=== PATIENT | male | born 1995 | race Caucasian/White ===

== ENCOUNTER 2018-10-28 11:37 | Emergency (ER) | payer BC ==
[~2018-10-28] VITALS: Ht 177.8 cm; Wt 83.9 kg
[2018-10-28 11:50] LABS: URINE BILIRUBIN NEGATIVE (Negative); URINE BLOOD NEGATIVE (Negative); URINE CLARITY CLEAR; URINE COLOR YELLOW; URINE GLUCOSE-RANDOM NEGATIVE (Negative); URINE KETONES NEGATIVE (Negative); URINE LEUKOCYTES-REFLEX NEGATIVE (Negative); URINE NITRITE-REFLEX NEGATIVE (Negative); URINE PROTEIN NEGATIVE (Negative); URINE UROBILINOGEN 0.2 E.U./dl (0.2-1.0)
[2018-10-28 12:16] LABS: ABSOLUTE BASOPHILS 0.1 thou/uL (0.0-0.2); ABSOLUTE EOSINOPHILS 0.1 thou/uL (0.0-0.7); ABSOLUTE LYMPHOCYTES 2.1 thou/uL (0.8-5.3); ABSOLUTE MONOCYTES 0.4 thou/uL (0.0-1.2); ABSOLUTE NEUTROPHILS 3.8 thou/uL (1.6-8.1); HEMATOCRIT 45.5 % (42.0-52.0); LYMPHOCYTES 32.4 %; MCHC 35.2 g/dL (28.0-37.0); MCV 90.9 fL (80.0-100.0); MONOCYTES 5.9 %; MPV 8.1 fl. (7.2-11.1); NUCLEATED RBCS 0 /100WBC; PLATELET COUNT* 271 thou/uL (150-400); POLYS 58.7 %; RBC 5.01 mil/uL (4.50-6.00); WBC 6.4 thou/uL (4.0-11.0)
[2018-10-28 12:23] LABS: CREATININE 0.9 mg/dL (0.6-1.3); POTASSIUM 3.7 mmol/L (3.5-5.1)
[2018-10-28 12:28] LABS: ALBUMIN 3.9 g/dL (3.4-5.0); TOTAL BILIRUBIN 0.3 mg/dL (<0.1-1.0); TOTAL PROTEIN 7.9 g/dL (6.4-8.2)
[2018-10-28] MEDS ORDERED: BENTYL 20 MG TA20 M1 PO (13:18)
[2018-10-28] MEDS ORDERED: PEPCID20 MG PO (13:18)
[2018-10-28 13:38] VITALS: BP 131/79
== END 2018-10-28 13:39 | disposition home or self-care (01) ==
LOC: M.ERS 11:37
PROVIDERS: Nurse Practitioner Family
DX: K80.50 Calculus of bile duct without cholangitis or cholecystitis without obstruction (principal); R10.13 Epigastric pain; J45.909 Unspecified asthma, uncomplicated; F17.200 Nicotine dependence, unspecified, uncomplicated; Z91.09 Other allergy status, other than to drugs and biological substances

== ENCOUNTER 2020-01-23 14:28 | Emergency (ER) | payer BC ==
[~2020-01-23] VITALS: Ht 180.3 cm; Wt 81.7 kg
[~2020-01-23 14:28] MED LIST: BENTYL 20 MG TA20 M1 PO; PEPCID20 MG PO
[2020-01-23 15:36] VITALS: BP 121/81
== END 2020-01-23 15:37 | disposition home or self-care (01) ==
LOC: M.ERS 14:28
DX: S63.693A Other sprain of left middle finger, initial encounter (principal); J45.909 Unspecified asthma, uncomplicated; F17.210 Nicotine dependence, cigarettes, uncomplicated; Z91.041 Radiographic dye allergy status; X50.9XXA Other and unspecified overexertion or strenuous movements or postures, initial encounter; Y93.89 Activity, other specified; Y92.89 Other specified places as the place of occurrence of the external cause; Y99.8 Other external cause status

== ENCOUNTER 2020-01-27 03:28 | Emergency (ER) | payer BC ==
[~2020-01-27] VITALS: Ht 180.3 cm; Wt 81.7 kg
[2020-01-27] MEDS ORDERED: TRAMADOL 50 MG50 MG PO (03:54)
[2020-01-27 04:00] VITALS: BP 125/85
== END 2020-01-27 04:00 | disposition home or self-care (01) ==
LOC: M.ERS 03:28
DX: S60.032A Contusion of left middle finger without damage to nail, initial encounter (principal); J45.909 Unspecified asthma, uncomplicated; Z91.041 Radiographic dye allergy status; W23.0XXA Caught, crushed, jammed, or pinched between moving objects, initial encounter; Y93.89 Activity, other specified; Y92.89 Other specified places as the place of occurrence of the external cause; Y99.8 Other external cause status

== ENCOUNTER 2020-02-03 23:10 | Emergency (ER) | payer BC ==
[~2020-02-03] VITALS: Ht 180.3 cm; Wt 86.2 kg
[~2020-02-03 23:10] MED LIST changes: +TRAMADOL 50 MG50 MG PO
[2020-02-03] MEDS ORDERED: IBUPROFEN 800800 M1 PO (23:37)
[2020-02-03 23:50] VITALS: BP 129/82
== END 2020-02-03 23:50 | disposition home or self-care (01) ==
LOC: M.ERS 23:10
DX: M25.442 Effusion, left hand (principal); M79.645 Pain in left finger(s); J45.909 Unspecified asthma, uncomplicated; F17.210 Nicotine dependence, cigarettes, uncomplicated; Z91.041 Radiographic dye allergy status

== ENCOUNTER 2020-05-09 12:35 | Emergency (ER) | payer OTHER ==
[~2020-05-09] VITALS: Ht 154.9 cm; Wt 81.7 kg
[~2020-05-09 12:35] MED LIST changes: +IBUPROFEN 800800 M1 PO
[2020-05-09 12:55] VITALS: BP 146/93
[2020-05-09] MEDS ORDERED: LIDOCAINE VISC100 ML SWISH&SPIT (13:03)
[2020-05-09] MEDS ORDERED: PERIDEX15 ML SWISH&SPIT (13:03)
[2020-05-09] MEDS ORDERED: AUGMENTIN 875-1 EACH PO (13:03)
== END 2020-05-09 13:09 | disposition home or self-care (01) ==
LOC: M.ERS 12:35
DX: K02.9 Dental caries, unspecified (principal); K05.10 Chronic gingivitis, plaque induced; J45.909 Unspecified asthma, uncomplicated; F17.210 Nicotine dependence, cigarettes, uncomplicated; Z91.041 Radiographic dye allergy status